=== PATIENT | male | born 1940 | race Caucasian/White ===

== ENCOUNTER 2018-09-09 02:42 | Inpatient (IN) ==
[2018-09-09 03:21] LABS: Basophils # 0.1 K/mcL (0.0-0.2); Basophils % 0.7 %; Eosinophils # 0.2 K/mcL (0.0-0.6); Eosinophils % 1.2 %; Hematocrit 44.8 % (37.5-50.1); Hemoglobin 15.5 g/dL (12.9-16.9); Immature Granulocytes % 0.7 % (0-4); Lymphocytes # 1.7 K/mcL (0.6-4.6); Lymphocytes % 14.1 %; Mean Corpuscular HGB Conc 34.6 g/dL (31.6-35.5); Mean Corpuscular Hemoglobin 32.2 pg (28.0-33.3); Mean Corpuscular Volume 92.9 fL (83.0-100.0); Mean Platelet Volume 10.5 fL (9.4-12.4); Monocytes # 0.8 K/mcL (0.0-1.3); Monocytes % 6.8 %; Neutrophils # 9.4 K/mcL (1.6-8.9); Platelet Count 189 K/mcL (140-400); Red Blood Count 4.82 M/mcL (4.19-5.50); Red Cell Distribution Width 13.8 % (11.5-14.5); Segmented Neutrophils % 76.5 %
[2018-09-09] MEDS ORDERED: *HR* FentaNYL (PF) 100 MCG/2 ML VIAL IVP ONE ×2 (03:26→04:48)
[2018-09-09] MEDS ORDERED: Ondansetron 4 MG/2 ML VIAL IVP ONE ×2 (03:26→05:25)
--- NOTE | 2018-09-09 03:31 | Emergency Department Note ---
Disposition Clinical Impression: Small bowel obstruction, Hyperglycemia Abdominal pain Qualifiers: Abdominal location: epigastric Qualified Code(s): R10.13 - Epigastric pain Leukocytosis Qualifiers: Leukocytosis type: unspecified Qualified Code(s): D72.829 - Elevated white blood cell count, unspecified Disposition: Admitted As Inpatient Condition: Good [facility] Care Provider[facility] - Forms: ED Satisfaction Letter, Work/School Release Time of Disposition: 05:06 General Adult HPI - General Chief complaint: ED Abdominal Pain Stated complaint: abdominal pain Time Seen by Provider: 09/09/18 03:20 Source: patient Mode of arrival: ambulatory Limitations: no limitations Nursing Notes Reviewed: Yes Vital Signs Reviewed: Yes - History of Present Illness HPI Narrative: Patient is a 78-year-old male that presents emergency department with abdominal pain. Patient states that his abdominal pain began around 2100 yesterday evening. Patient states that the pain is located in the epigastric region and will radiate around to his sides. Patient states that he has had a previous history of pancreatitis and a small bowel obstruction. Patient states that the pain does feel somewhat similar to his small bowel obstruction however it is not as severe as when he had a small bowel obstruction. Patient states that the pain will wax and wane but never completely goes away. Patient has not vomited or had any diarrhea. Patient states that this does not really feel like his previous episode of pancreatitis. Patient states that his pancreatitis was secondary to a gallbladder issue. Patient states that his last bowel movement was at 1800 yesterday evening. States that since then he has not really been passing any gas. Pain Scale: 3 - Related Data Home Medications Medication Instructions Recorded Confirmed Acetaminophen [Tylenol] 500 mg PO BID PRN 10/30/17 10/30/17 Albuterol Sulfate [Albuterol 2 puff IH Q4H PRN 10/30/17 10/30/17 Inhaler] Aspirin Enteric Coated [Aspirin EC] 325 mg PO DAILY 10/30/17 10/30/17 Budesonide/Formoterol 160/4.5 1 puff IH Q12H 10/30/17 10/30/17 [Symbicort 160/4.5] Hydrochlorothiazide [Microzide] 12.5 mg PO DAILY 10/30/17 10/30/17 Ibuprofen [Motrin] 200 mg PO DAILY PRN 10/30/17 10/30/17 Metformin HCl [Glucophage] 1,000 mg PO DAILY 10/30/17 10/30/17 Metoprolol [Lopressor] 12.5 mg PO BID 10/30/17 10/30/17 Pravastatin Sodium [Pravachol] 60 mg PO HS 10/30/17 10/30/17 Previous Rx's Medication Instructions Recorded OxyCODONE/APAP 5/325 [Percocet 1 each PO Q4HR PRN #20 tablet 11/05/17 5/325 MG] Allergies Allergy/AdvReac Type Severity Reaction Status Date / Time No Known Allergies Allergy Verified 10/30/17 10:15 All systems ED: reviewed and negative except as stated. Cardiovascular: Denies: chest pain Respiratory: Denies: dyspnea Gastrointestinal: Reports: abdominal pain. Denies: nausea, vomiting, diarrhea Past Medical History - Past Medical History Medical history: Reports: asthma, cancer, diabetes, hyperlipidemia, hypertension Surgical history: Reports: other Psychiatric history: Reports: no psych history - Social History Smoking Status: Former smoker Smokeless Tobacco Status: No Alcohol use: Reports: none Drug use: Reports: none Physical Exam - General Limitations: no limitations General appearance: alert, in no apparent distress - Head Head exam: atraumatic, normocephalic - Eye Eye exam: Present: normal appearance, EOMI - Neck Neck exam: Present: normal inspection, full ROM, trachea midline - Respiratory Respiratory exam: Present: normal lung sounds bilaterally. Absent: respiratory distress, wheezes - Cardiovascular Cardiovascular exam: Present: regular rate, normal rhythm, normal heart sounds, +S1, +S2 - Abdominal Exam Abdominal exam: Present: soft, tenderness, normal bowel sounds Abdominal tenderness: Present: epigastrium, moderate - Neurological Exam Neurological exam: Present: alert, oriented X3 - Psychiatric Psychiatric exam: Present: normal affect, normal mood - Skin Skin exam: Present: warm, dry, intact Course Vital Signs Temperature 98.3 F 09/09/18 02:44 Pulse Rate 73 09/09/18 02:44 Respiratory Rate 18 09/09/18 02:44 Blood Pressure 169/81 09/09/18 02:44 O2 Sat by Pulse Oximetry 97 09/09/18 02:44 Temperature 98.3 F 09/09/18 02:44 Pulse Rate 68 09/09/18 04:46 Respiratory Rate 18 09/09/18 04:46 Blood Pressure 161/74 09/09/18 04:46 O2 Sat by Pulse Oximetry 100 09/09/18 04:46 Oxygen Delivery Oxygen Delivery Room Air Medical Decision Making - MDM Narrative Medical decision making narrative: Due to the patient presenting to the emergency department with abdominal pain with a history of pancreatitis and small bowel obstruction we will obtain basic laboratory testing as well as a CT scan of the abdomen and pelvis to rule out possible entry abdominal pathology. The CT of the abdomen and pelvis did show evidence of a small bowel obstruction. Patient does also have a leukocytosis of 12.3.. Patient is hyperglycemic with a blood sugar of 243. Remainder of his laboratory testing is relatively unremarkable. Based on the patient having a small bowel obstruction and [facility]. I called and spoke with the on-call surgeon Dr. Snyder and he recommended that the patient be admitted to the medical service with a surgical consult. [facility] discussion with the [facility] the patient has been approved to stay here at [facility] for the remainder of his care at his small bowel obstruction. Patient will be admitted to the medical service. An NG tube was not placed at this time due to the patient not having any vomiting. I called spoke the admitting hospitalist Dr. Irene and he is except the patient to their service. Patient be admitted to the hospital at this time for further evaluation and management. - Medical Records Medical records reviewed: Yes I reviewed the patient's medical records. - Lab Data Lab results reviewed: Yes I reviewed the patient's lab results. Result diagrams: 09/09/18 03:08 09/09/18 03:08 Lab Results 09/09/18 09/09/18 09/09/18 Range/Units 03:08 03:08 03:08 WBC 12.3 H (4.3-11.1) K/mcL RBC 4.82 (4.19-5.50) M/mcL Hgb 15.5 (12.9-16.9) g/dL Hct 44.8 (37.5-50.1) % MCV 92.9 (83.0-100.0) fL MCH 32.2 (28.0-33.3) pg MCHC 34.6 (31.6-35.5) g/dL RDW 13.8 (11.5-14.5) % Plt Count 189 (140-400) K/mcL MPV 10.5 (9.4-12.4) fL Immature Gran % 0.7 (0-4) % Seg Neutrophils % 76.5 % Lymphocytes % 14.1 % Monocytes % 6.8 % Eosinophils % 1.2 % Basophils % 0.7 % Neutrophils # 9.4 H (1.6-8.9) K/mcL Lymphocytes # 1.7 (0.6-4.6) K/mcL Monocytes # 0.8 (0.0-1.3) K/mcL Eosinophils # 0.2 (0.0-0.6) K/mcL Basophils # 0.1 (0.0-0.2) K/mcL Sodium 137 (136-145) mEq/L Potassium 4.0 (3.5-5.1) mEq/L Chloride 101 (98-107) mEq/L Carbon Dioxide 28 (23-29) mEq/L BUN 21 (8-23) mg/dL Creatinine 1.02 (0.70-1.30) mg/dL Est GFR ( Amer) > 60 (> 60) Est GFR (Non-Af Amer) > 60 (> 60) BUN/Creatinine Ratio 21 (6-26) Glucose 243 H (70-105) mg/dL Calculated Osmolality 295 (280-300) Calcium 9.5 (8.6-10.3) mg/dL Total Bilirubin 0.5 (0.3-1.0) mg/dL Direct Bilirubin 0.1 (0.0-0.2) mg/dL Indirect Bilirubin 0.4 (0.0-1.2) mg/dL AST 25 (13-39) Units/L ALT 18 (7-52) Units/L Alkaline Phosphatase 61 (34-104) Units/L Troponin I < 0.03 (< 0.04) ng/mL Serum Total Protein 7.6 (6.4-8.9) g/dL Albumin 4.6 (3.5-5.7) g/dL Globulin 3.0 (2.4-3.5) g/dL Albumin/Globulin Ratio 1.5 (1.1-2.2) Lipase 32 (11-82) Units/L - Radiology Data Radiology results reviewed: Yes I reviewed the patient's radiology results. Abdomen/Pelvis CT 09/09/18 03:27 IMPRESSION: Features of a mechanical small bowel obstruction with zone of transition in the right hemiabdomen in the region of the bowel anastomosis. No free intraperitoneal air. D/ / Raheem Greene / Raheem Greene Interpreting Provider: Raheem Greene - EKG Data EKG #1 EKG attestation: Yes I reviewed and interpreted this EKG. EKG results narrative: EKG shows a sinus rhythm and rate of 69 bpm, NE interval of 209, QRS duration 99, QTC of 402. There is no evidence of STEMI on EKG.
[2018-09-09 03:38] LABS: Alanine Aminotransferase 18 Units/L (7-52); Albumin 4.6 g/dL (3.5-5.7); Albumin/Globulin Ratio 1.5 (1.1-2.2); Alkaline Phosphatase 61 Units/L (34-104); Aspartate Amino Transferase 25 Units/L (13-39); BUN/Creatinine Ratio 21 (6-26); Bilirubin,Direct 0.1 mg/dL (0.0-0.2); Bilirubin,Indirect 0.4 mg/dL (0.0-1.2); Bilirubin,Total 0.5 mg/dL (0.3-1.0); Blood Urea Nitrogen 21 mg/dL (8-23); Calcium 9.5 mg/dL (8.6-10.3); Carbon Dioxide 28 mEq/L (23-29); Chloride 101 mEq/L (98-107); Glucose 243 mg/dL (70-105); Osmolality,Calculated 295 (280-300); Sodium 137 mEq/L (136-145); Total Protein 7.6 g/dL (6.4-8.9); eGFR For Non-African Americans > 60 (> 60)
[2018-09-09 03:50] LABS: Lipase 32 Units/L (11-82); Troponin I < 0.03 ng/mL (< 0.04)
--- NOTE | 2018-09-09 04:55 | Emergency Department Note ---
Disposition Clinical Impression: Small bowel obstruction, Hyperglycemia Abdominal pain Qualifiers: Abdominal location: epigastric Qualified Code(s): R10.13 - Epigastric pain Leukocytosis Qualifiers: Leukocytosis type: unspecified Qualified Code(s): D72.829 - Elevated white blood cell count, unspecified Disposition: Admitted As Inpatient Condition: Good General Adult HPI - General Chief complaint: ED Abdominal Pain Stated complaint: abdominal pain Time Seen by Provider: 09/09/18 03:20 Source: patient Mode of arrival: ambulatory Limitations: no limitations Nursing Notes Reviewed: Yes Vital Signs Reviewed: Yes - History of Present Illness Pain Scale: 3 - Related Data Home Medications Medication Instructions Recorded Confirmed Acetaminophen [Tylenol] 500 mg PO BID PRN 10/30/17 10/30/17 Albuterol Sulfate [Albuterol 2 puff IH Q4H PRN 10/30/17 10/30/17 Inhaler] Aspirin Enteric Coated [Aspirin EC] 325 mg PO DAILY 10/30/17 10/30/17 Budesonide/Formoterol 160/4.5 1 puff IH Q12H 10/30/17 10/30/17 [Symbicort 160/4.5] Hydrochlorothiazide [Microzide] 12.5 mg PO DAILY 10/30/17 10/30/17 Ibuprofen [Motrin] 200 mg PO DAILY PRN 10/30/17 10/30/17 Metformin HCl [Glucophage] 1,000 mg PO DAILY 10/30/17 10/30/17 Metoprolol [Lopressor] 12.5 mg PO BID 10/30/17 10/30/17 Pravastatin Sodium [Pravachol] 60 mg PO HS 10/30/17 10/30/17 Previous Rx's Medication Instructions Recorded OxyCODONE/APAP 5/325 [Percocet 1 each PO Q4HR PRN #20 tablet 11/05/17 5/325 MG] Allergies Allergy/AdvReac Type Severity Reaction Status Date / Time No Known Allergies Allergy Verified 10/30/17 10:15 Cardiovascular: Denies: chest pain Respiratory: Denies: dyspnea Gastrointestinal: Reports: abdominal pain. Denies: nausea, vomiting, diarrhea Past Medical History - Past Medical History Medical history: Reports: asthma, cancer, diabetes, hyperlipidemia, hypertension Surgical history: Reports: other Psychiatric history: Reports: no psych history - Social History Smoking Status: Former smoker Smokeless Tobacco Status: No Alcohol use: Reports: none Drug use: Reports: none Physical Exam - General Limitations: no limitations General appearance: alert, in no apparent distress Course Vital Signs Temperature 98.3 F 09/09/18 02:44 Pulse Rate 73 09/09/18 02:44 Respiratory Rate 18 09/09/18 02:44 Blood Pressure 169/81 09/09/18 02:44 O2 Sat by Pulse Oximetry 97 09/09/18 02:44 Temperature 98.3 F 09/09/18 02:44 Pulse Rate 72 09/09/18 05:35 Respiratory Rate 17 09/09/18 05:35 Blood Pressure 170/75 09/09/18 05:35 O2 Sat by Pulse Oximetry 97 09/09/18 05:35 Oxygen Delivery Oxygen Delivery Room Air Medical Decision Making - Medical Records Medical records reviewed: Yes I reviewed the patient's medical records. - Lab Data Lab results reviewed: Yes I reviewed the patient's lab results. Result diagrams: 09/09/18 03:08 09/09/18 03:08 Lab Results 09/09/18 09/09/18 09/09/18 Range/Units 03:08 03:08 03:08 WBC 12.3 H (4.3-11.1) K/mcL RBC 4.82 (4.19-5.50) M/mcL Hgb 15.5 (12.9-16.9) g/dL Hct 44.8 (37.5-50.1) % MCV 92.9 (83.0-100.0) fL MCH 32.2 (28.0-33.3) pg MCHC 34.6 (31.6-35.5) g/dL RDW 13.8 (11.5-14.5) % Plt Count 189 (140-400) K/mcL MPV 10.5 (9.4-12.4) fL Immature Gran % 0.7 (0-4) % Seg Neutrophils % 76.5 % Lymphocytes % 14.1 % Monocytes % 6.8 % Eosinophils % 1.2 % Basophils % 0.7 % Neutrophils # 9.4 H (1.6-8.9) K/mcL Lymphocytes # 1.7 (0.6-4.6) K/mcL Monocytes # 0.8 (0.0-1.3) K/mcL Eosinophils # 0.2 (0.0-0.6) K/mcL Basophils # 0.1 (0.0-0.2) K/mcL Sodium 137 (136-145) mEq/L Potassium 4.0 (3.5-5.1) mEq/L Chloride 101 (98-107) mEq/L Carbon Dioxide 28 (23-29) mEq/L BUN 21 (8-23) mg/dL Creatinine 1.02 (0.70-1.30) mg/dL Est GFR ( Amer) > 60 (> 60) Est GFR (Non-Af Amer) > 60 (> 60) BUN/Creatinine Ratio 21 (6-26) Glucose 243 H (70-105) mg/dL Calculated Osmolality 295 (280-300) Calcium 9.5 (8.6-10.3) mg/dL Total Bilirubin 0.5 (0.3-1.0) mg/dL Direct Bilirubin 0.1 (0.0-0.2) mg/dL Indirect Bilirubin 0.4 (0.0-1.2) mg/dL AST 25 (13-39) Units/L ALT 18 (7-52) Units/L Alkaline Phosphatase 61 (34-104) Units/L Troponin I < 0.03 (< 0.04) ng/mL Serum Total Protein 7.6 (6.4-8.9) g/dL Albumin 4.6 (3.5-5.7) g/dL Globulin 3.0 (2.4-3.5) g/dL Albumin/Globulin Ratio 1.5 (1.1-2.2) Lipase 32 (11-82) Units/L - Radiology Data Radiology results reviewed: Yes I reviewed the patient's radiology results. Abdomen/Pelvis CT 09/09/18 03:27 IMPRESSION: Features of a mechanical small bowel obstruction with zone of transition in the right hemiabdomen in the region of the bowel anastomosis. No free intraperitoneal air. D/ / Raheem Greene / Raheem Greene Interpreting Provider: Raheem Greene - EKG Data EKG #1 EKG attestation: Yes I reviewed and interpreted this EKG. EKG results narrative: EKG shows a normal sinus rhythm with ventricular rate of 69. No acute ST segmen t elevation or depression. No arrhythmia or ectopy. Attestation Statement - Attestation Attestation: I, Bernardo Lindo MD, personally evaluated this patient and discussed their management with the resident physician. I reviewed the resident's note and agree with the documented findings, medical decision making, and plan of care. 78-year-old male presents to the emergency department with a complaint of mid abdominal pain which started about 9 PM this evening and has gotten progressively worse. There has been nausea and dry heaves but no productive vomiting. He had a normal bowel movement about 6 PM and then had a few loose bowel movements after that then the pain started and he has had no further bowel movements and has not been passing gas. Patient has a prior history of multiple abdominal surgeries. He had a bowel resection for colon cancer. He is also had a bowel obstruction which required surgery. On examination patient is a well-developed well-nourished elderly male in no acute distress. He is alert and oriented 3. There is no cyanosis or diaphoresis. Breath sounds are clear and equal bilaterally. Heart regular rate and rhythm. Abdomen is soft with decreased bowel sounds. Moderate mid abdominal tenderness with no guarding or rebound tenderness. Labs reviewed and unremarkable. CT consistent with small bowel obstruction. [facility] was consulted and approved admitting the patient here at [facility]. They reported that they would put notes in the record. The surgeon operator weapon locating radar, Dr. Snyder, was consulted and recommended medical admission with surgical consultation. The hospitalist, Dr. Seals, was consulted and accepted admission of the patient.
[2018-09-09 05:51] LABS: Bilirubin,Urine Negative (Negative); Blood,Urine Negative (Negative); Clarity,Urine Clear (Clear); Color,Urine Yellow (Yellow); Glucose,Urine (UA) 100 mg/dL (Normal); Ketones,Urine Negative (Negative); Leukocyte Esterase,Urine Negative (Negative); Nitrite,Urine Negative (Negative); Protein,Urine 100 mg/dL (Neg-Trace); Specific Gravity,Urine 1.014 (1.010-1.025); Urobilinogen,Urine Normal (Normal)
[2018-09-09 05:53] LABS: Bacteria,Urine None Seen per hpf (None-Few); Hyaline Casts,Urine None Seen per lpf (None-Few); RBC,Urine 0-3 per hpf (0-3); Squamous Epithelial Cell,Urine Few per lpf (None-Few); WBC,Urine 0-3 per hpf (0-3)
[2018-09-09] MEDS ORDERED: Dextrose Gel 15 GM/37.5 ML TUBE PO PRN ×2 (08:10)
[2018-09-09] MEDS ORDERED: *HR* Dextrose 50 % in Water (Syg) 50 ML SYRINGE IVP PRN (08:10)
[2018-09-09] MEDS ORDERED: D5% in Water 1,000 ML IVC PRN (08:10)
[2018-09-09] MEDS ORDERED: Naloxone 0.4 MG/ML INJ IVP PRN (08:12)
[2018-09-09] MEDS ORDERED: *HR* Promethazine 25 MG/ML VIAL IVP PRN (08:12)
[2018-09-09] MEDS ORDERED: *HR* Metoprolol 5 MG/5 ML VIAL IVP PRN (08:12)
[2018-09-09] MEDS ORDERED: Ondansetron 4 MG/2 ML VIAL IVP PRN (08:12)
[2018-09-09] MEDS ORDERED: Morphine Oral CONC 5 MG/0.25 ML ORAL.SYG PO PRN (08:15)
[2018-09-09] MEDS: Pantoprazole 40 MG VIAL IVP SCH (08:42)
[2018-09-09] MEDS: MORPHINE SUL Oral CONC 10 MG/0.5 ML ORAL.SYG PO PRN ×2 (08:42→14:42)
[2018-09-09] MEDS: 0.9 % Sodium Chloride 1,000 ML IVC SCH ×2 (08:43→18:17)
[2018-09-09] MEDS ORDERED: Chloraseptic Spray 177 ML BOTTLE MM STA (09:47)
[2018-09-09] MEDS ORDERED: Saliva Stimulant 100ml BOTTLE PO PRN (09:47)
[2018-09-09] MEDS ORDERED: Lidocaine Jelly 6ml 1 APPL/6 ML JEL.PF.APP MM STA (09:47)
[2018-09-09] MEDS: Budesonide/Formoterol 160/4.5 1 PUFF INH IH SCH ×2 (11:07→20:31)
[2018-09-09] MEDS: Insulin LISPRO 300 UNITS/3 ML VIAL SQ SCH ×2 (11:56→17:51)
[2018-09-09] MEDS ORDERED: *HR* Metoprolol 5 MG/5 ML VIAL IVP SCH (12:00)
[2018-09-09] MEDS ORDERED: Chloraseptic Spray 177 ML BOTTLE MM PRN (12:26)
--- NOTE | 2018-09-09 12:38 | General Surg History&Physical ---
<Mini Alvarado - Last Filed: 09/09/18 12:27> Date of Encounter: 09/09/18 Time of Encounter: 09:00 Assessment and Plan (1) Small bowel obstruction Current Visit: Yes Status: Acute The assessment and plan as outlined above was discussed with the patient and/or family members who expressed understanding and agreement. All questions were ans wered. CT of the abdomen and pelvis without contrast noted mechanical small bowel obstruction with transition zone in the right hemicolectomy abdomen likely in the region of the previous bowel anastomosis. No free air. NG tube was placed with small amount of cecal lent material returned. Of note the patient had just vomited approximately 400 ML's prior to insertion. Moderate amount of air returned. KUB notes proper placement. Plan continue supportive care and discomfort management bowel rest continue NG to low intermittent wall suction ambulate as tolerated EPCDs incentive spirometry. Patient is strongly encouraged to perform incentive spirometry 10 times every hour while awake. Patient does note that after his admission in October he was then admitted to the [facility] for pneumonia. repeat am labs serial abdominal exams (2) Nausea and vomiting Current Visit: Yes Status: Acute See above Qualifiers: Vomiting type: unspecified Vomiting Intractability: non-intractable Qualified Code(s): R11.2 - Nausea with vomiting, unspecified (3) HTN (hypertension) Current Visit: No Status: Chronic IV metoprolol prn for BP Qualifiers: Hypertension type: essential hypertension Qualified Code(s): I10 - Essential (primary) hypertension (4) History of colon cancer Current Visit: No Status: Resolved Per patient reported record review, last colonoscopy was 2 years ago at the [facility]. He has colonoscopies every 5 years. (5) HLD (hyperlipidemia) Current Visit: No Status: Chronic The assessment and plan as outlined above was discussed with the patient and/or family members who expressed understanding and agreement. All questions were answered. Qualifiers: Hyperlipidemia type: pure hypercholesterolemia Qualified Code(s): E78.00 - Pure hypercholesterolemia, unspecified; E78.0 - Pure hypercholesterolemia (6) Leukocytosis Current Visit: Yes Status: Acute The assessment and plan as outlined above was discussed with the patient and/or family members who expressed understanding and agreement. All questions were answered. Most likely reactionary. will continue to monitor. No indication for ATBX at this time Qualifiers: Leukocytosis type: unspecified Qualified Code(s): D72.829 - Elevated white blood cell count, unspecified History of Present Illness Chief complaint: abdominal pain HPI: Mr. Combs is a 78 year old male who presented on 09/09/2018 with complaints of abdominal pain. He has a notable history of colon cancer over 20 years ago. He reports having colon resection and chemotherapy. He was admitted to [facility] in October 2017 for a small bowel obstruction and underwent an exploratory laparotomy, lysis of adhesions, for aprox [address] Stewart. He reports his present symptoms feel similar. The ER attemped an NG but was unsuccessful, and the patient and refused reattempt. He states that yesterday he ate 2 burritos for dinner and at aprox 10pm began feeling abdominal pain and vomiting. He denies fever, chills, chest pain, shortness of breath, urinary signs or symptoms, black, bloody, or tarry stool. He reports his last bowel movement was yesterday, soft, formed. He continues to endorse feelings of nausea and vomiting, abdominal pain that is sharp in the mid abdomen. His further Past medical, surgical, and social histories have been reviewed per the EMR and updated where indicated. Past Med Surg Social Fam HX - Past Medical History Source: patient Medical history: asthma, cancer, diabetes, hyperlipidemia, hypertension, other (Hospital avquired PNA (October 2017)) Additional medical history: colon cancer Psychiatric history: no psych history - Past Surgical History Surgical History: other (Colon resection; exploratory laparotomy) Additional surgical history: colon surgery - Social History Smoking Status: Former smoker Smokeless Tobacco Status: No Alcohol use: none Drug use: none - Family History Father Family Member Ethnicity: Non- Living Status: Hx Family Endocrine Disorder: Yes Mother Family Member Ethnicity: Non- Living Status: Hx Family Cardiac Disorders: No Hx Family Cancer: Yes (Lung, Brain) Sister Family Member Ethnicity: Non- Living Status: Hx Family Cancer: Yes (Liver) Medications and Allergies RX: Acetaminophen [Tylenol] 500 mg PO BID PRN 10/30/17 [History] RX: Albuterol Sulfate [Albuterol Inhaler] 2 puff IH Q4H PRN 10/30/17 [History] RX: Aspirin Enteric Coated [Aspirin EC] 325 mg PO DAILY 10/30/17 [History] RX: Budesonide/Formoterol 160/4.5 [Symbicort 160/4.5] 1 puff IH Q12H 10/30/17 [History] RX: Hydrochlorothiazide [Microzide] 12.5 mg PO DAILY 10/30/17 [History] RX: Ibuprofen [Motrin] 200 mg PO DAILY PRN 10/30/17 [History] RX: Metformin HCl [Glucophage] 1,000 mg PO DAILY 10/30/17 [History] RX: Metoprolol [Lopressor] 12.5 mg PO BID 10/30/17 [History] RX: Pravastatin Sodium [Pravachol] 60 mg PO HS 10/30/17 [History] RX: OxyCODONE/APAP 5/325 [Percocet 5/325 MG] 1 each PO Q4HR PRN #20 tablet 11/05/17 [Rx] Allergy/AdvReac Type Severity Reaction Status Date / Time No Known Allergies Allergy Verified 10/30/17 10:15 Review of Systems All systems PM: reviewed and no additional remarkable complaints except as stated All systems PM: The remainder of the systems were reviewed and are negative - Constitutional no fatigue, no weight loss General Surgery Exam Initial Vital Signs Temp Pulse Resp BP Pulse Ox 98.3 F 73 18 169/81 97 09/09/18 02:44 09/09/18 02:44 09/09/18 02:44 09/09/18 02:44 09/09/18 02:44 VITAL SIGNS: Reviewed. See [facility] GENERAL: In no apparent distress. HEENT: Normocephalic, atraumatic, pupils are equal and reactive, extraocular motions intact, oropharynx is pink and moist, there is no neck adenopathy or JVD noted. CHEST/RESPIRATORY: The thorax is free from signs of trauma. Lung sounds: clear to auscultation, normal respiratory effort CARDIAC: Regular rate and rhythm. Normal S1 and S2, without murmurs, gallops, or rubs. VASCULAR: No Edema. 2+ peripheral pulses. ABDOMEN: soft, tender epigastric and umbilical area, absent bowel sounds; NG tube placed without difficulty, moderate amount of air in approximately 100 ML's fecal material returned. Just prior to insertion, patient did vomiting approximately 400 ML's; midline surgical scar healed. MUSCULOSKELETAL: Good range of motion of all major joints. Extremities without clubbing, cyanosis or edema. NEUROLOGIC EXAM: Alert and oriented x 3. Speech normal. Follows commands. PSYCHIATRIC: Mood normal. SKIN: No rash or lesions. Results - Labs 09/09/18 03:08 09/09/18 03:08 Abnormal lab results WBC 12.3 K/mcL (4.3-11.1) H 09/09/18 03:08 Neutrophils # 9.4 K/mcL (1.6-8.9) H 09/09/18 03:08 Glucose 243 mg/dL (70-105) H 09/09/18 03:08 Urine Protein 100 mg/dL (Neg-Trace) H 09/09/18 05:43 Urine Glucose (UA) 100 mg/dL (Normal) H 09/09/18 05:43 Diabetes panel 09/09/18 Range/Units 03:08 Sodium 137 (136-145) mEq/L Potassium 4.0 (3.5-5.1) mEq/L Chloride 101 (98-107) mEq/L Carbon Dioxide 28 (23-29) mEq/L BUN 21 (8-23) mg/dL Creatinine 1.02 (0.70-1.30) mg/dL Glucose 243 H (70-105) mg/dL Calcium 9.5 (8.6-10.3) mg/dL AST 25 (13-39) Units/L ALT 18 (7-52) Units/L Alkaline Phosphatase 61 (34-104) Units/L Albumin 4.6 (3.5-5.7) g/dL Calcium panel 09/09/18 Range/Units 03:08 Calcium 9.5 (8.6-10.3) mg/dL Albumin 4.6 (3.5-5.7) g/dL Pituitary panel 09/09/18 Range/Units 03:08 Sodium 137 (136-145) mEq/L Potassium 4.0 (3.5-5.1) mEq/L Chloride 101 (98-107) mEq/L Carbon Dioxide 28 (23-29) mEq/L BUN 21 (8-23) mg/dL Creatinine 1.02 (0.70-1.30) mg/dL Glucose 243 H (70-105) mg/dL Calcium 9.5 (8.6-10.3) mg/dL Adrenal panel 09/09/18 Range/Units 03:08 Sodium 137 (136-145) mEq/L Potassium 4.0 (3.5-5.1) mEq/L Chloride 101 (98-107) mEq/L Carbon Dioxide 28 (23-29) mEq/L BUN 21 (8-23) mg/dL Creatinine 1.02 (0.70-1.30) mg/dL Glucose 243 H (70-105) mg/dL Calcium 9.5 (8.6-10.3) mg/dL Total Bilirubin 0.5 (0.3-1.0) mg/dL AST 25 (13-39) Units/L ALT 18 (7-52) Units/L Alkaline Phosphatase 61 (34-104) Units/L Albumin 4.6 (3.5-5.7) g/dL All other labs normal. - Imaging CT scan - abdomen: report reviewed, image reviewed CT scan - pelvis: report reviewed, image reviewed <Madai Stewart - Last Filed: 09/09/18 14:48> Date of Encounter: 09/09/18 Time of Encounter: 14:25 Assessment and Plan (1) Small bowel obstruction Current Visit: Yes Status: Acute The assessment and plan as outlined above was discussed with the patient and/or family members who expressed understanding and agreement. All questions were answered. (2) Nausea and vomiting Current Visit: Yes Status: Acute The assessment and plan as outlined above was discussed with the patient and/or family members who expressed understanding and agreement. All questions were answered. prn antiemetics ngt to liws npo Qualifiers: Vomiting type: unspecified Vomiting Intractability: non-intractable Qualified Code(s): R11.2 - Nausea with vomiting, unspecified (3) HLD (hyperlipidemia) Current Visit: No Status: Chronic The assessment and plan as outlined above was discussed with the patient and/or family members who expressed understanding and agreement. All questions were answered. hold home meds currently Qualifiers: Hyperlipidemia type: pure hypercholesterolemia Qualified Code(s): E78.00 - Pure hypercholesterolemia, unspecified; E78.0 - Pure hypercholesterolemia (4) HTN (hypertension) Current Visit: No Status: Chronic The assessment and plan as outlined above was discussed with the patient and/or family members who expressed understanding and agreement. All questions were answered. scheduled lopressor, prn lopressor and hydralazine monitor Qualifiers: Hypertension type: essential hypertension Qualified Code(s): I10 - Essential (primary) hypertension (5) History of colon cancer Current Visit: No Status: Resolved The assessment and plan as outlined above was discussed with the patient and/or family members who expressed understanding and agreement. All questions were an swered. patient with previous right colectomy, CT shows possible site of narrowing at anastomosis (6) Leukocytosis Current Visit: Yes Status: Acute The assessment and plan as outlined above was discussed with the patient and/or family members who expressed understanding and agreement. All questions were answered. likely due to small bowel dilation no fevers trend wbc Qualifiers: Leukocytosis type: unspecified Qualified Code(s): D72.829 - Elevated white blood cell count, unspecified (7) Small bowel obstruction due to adhesions Current Visit: No Status: Acute The assessment and plan as outlined above was discussed with the patient and/or family members who expressed understanding and agreement. All questions were answered. small bowel obstruction due to adhesions or possible narrowing of anastomosis (s/p right colectomy( discussed with patient that he does not need an urgent surgery at this time would like to give his body the opportunity to resolve the obstruction on its own, if it does will plan sbft and colonoscopy (outpatient) npo ivf hydration prn pain control prn antiemetics ngt to liws scheduled home aerosols for asthma scheduled lopressor for htn, prn antihypertensives gi/dvt prophylasix (8) Asthma Current Visit: Yes Status: Chronic The assessment and plan as outlined above was discussed with the patient and/or family members who expressed understanding and agreement. All questions were answered. continue home aerosols pulmonary toilet/IS Qualifiers: Asthma severity: mild Asthma persistence: unspecified Asthma complication type: unspecified Qualified Code(s): J45.909 - Unspecified asthma, uncomplicated (9) DVT prophylaxis Current Visit: No Status: Acute The assessment and plan as outlined above was discussed with the patient and/or family members who expressed understanding and agreement. All questions were answered. heparin sq History of Present Illness HPI: Mr. Combs is a 78 year old male who presented with less than one day of abdominal pain and nausea and vomiting. Pain started last night around 9 pm and was generalized, sharp crampy pain. He had a bowel obstruction due to an adhesive band in Oct of this year and new the pain felt similar to last time. He has been having nausea and vomiting. He denies flatus overnight or today. Last bm was yesterday. No fevers, chills or night sweats. Patient states he had a right colectomy for colon cancer in the early . Usually the [facility] does his colonoscopies and last one was 4-5 years ago. No melena or hematochezia. Past Med Surg Social Fam HX - Past Medical History Medical history: asthma, cancer (right colon cancer), diabetes, hyperlipidemia, hypertension - Past Surgical History Surgical History: other (Colon resection/right colectomy; exploratory laparotomy/lysis of adhesions) Additional surgical history: right colectomy - Social History Occupational status: retired Review of Systems All systems PM: reviewed and no additional remarkable complaints except as stated All systems PM: The remainder of the systems were reviewed and are negative General Surgery Exam Initial Vital Signs Temp Pulse Resp BP Pulse Ox 98.3 F 73 18 169/81 97 09/09/18 02:44 09/09/18 02:44 09/09/18 02:44 09/09/18 02:44 09/09/18 02:44 - General physical appearance well developed, well nourished, no distress, moderate pain, obese - Eyes PERRL, normal ocular movement - ENT normal mucosa, normocephalic - Neck trachea midline - Respiratory normal expansion, clear to auscultation - Cardiovascular Cardiovascular exam: Present: RRR - Abdomen Abdomen general surgery: Present: bowel sounds present, soft, distended, tender. Absent: guarding, rebound Abdominal Tenderness: Present: diffusely - Integumentary Integumentary general surgery: Present: warm and dry, no abnormal pigmentation - Neurologic Present: CN 2-12 grossly intact - Musculoskeletal Present: normal posture - Psychiatric Psychiatric general surgery: Present: A&Ox3, appropriate Results - Labs 09/09/18 03:08 09/09/18 03:08 Abnormal lab results WBC 12.3 K/mcL (4.3-11.1) H 09/09/18 03:08 Neutrophils # 9.4 K/mcL (1.6-8.9) H 09/09/18 03:08 Glucose 243 mg/dL (70-105) H 09/09/18 03:08 Urine Protein 100 mg/dL (Neg-Trace) H 09/09/18 05:43 Urine Glucose (UA) 100 mg/dL (Normal) H 09/09/18 05:43 Diabetes panel 09/09/18 Range/Units 03:08 Sodium 137 (136-145) mEq/L Potassium 4.0 (3.5-5.1) mEq/L Chloride 101 (98-107) mEq/L Carbon Dioxide 28 (23-29) mEq/L BUN 21 (8-23) mg/dL Creatinine 1.02 (0.70-1.30) mg/dL Glucose 243 H (70-105) mg/dL Calcium 9.5 (8.6-10.3) mg/dL AST 25 (13-39) Units/L ALT 18 (7-52) Units/L Alkaline Phosphatase 61 (34-104) Units/L Albumin 4.6 (3.5-5.7) g/dL Calcium panel 09/09/18 Range/Units 03:08 Calcium 9.5 (8.6-10.3) mg/dL Albumin 4.6 (3.5-5.7) g/dL Pituitary panel 09/09/18 Range/Units 03:08 Sodium 137 (136-145) mEq/L Potassium 4.0 (3.5-5.1) mEq/L Chloride 101 (98-107) mEq/L Carbon Dioxide 28 (23-29) mEq/L BUN 21 (8-23) mg/dL Creatinine 1.02 (0.70-1.30) mg/dL Glucose 243 H (70-105) mg/dL Calcium 9.5 (8.6-10.3) mg/dL Adrenal panel 09/09/18 Range/Units 03:08 Sodium 137 (136-145) mEq/L Potassium 4.0 (3.5-5.1) mEq/L Chloride 101 (98-107) mEq/L Carbon Dioxide 28 (23-29) mEq/L BUN 21 (8-23) mg/dL Creatinine 1.02 (0.70-1.30) mg/dL Glucose 243 H (70-105) mg/dL Calcium 9.5 (8.6-10.3) mg/dL Total Bilirubin 0.5 (0.3-1.0) mg/dL AST 25 (13-39) Units/L ALT 18 (7-52) Units/L Alkaline Phosphatase 61 (34-104) Units/L Albumin 4.6 (3.5-5.7) g/dL All other labs normal. - Imaging CT scan - abdomen: report reviewed, image reviewed CT scan - pelvis: report reviewed, image reviewed - Attending Attestation I have personally performed a face to face evaluation on this patient. I have reviewed and agree with the care plan. History and Exam by me shows:
[2018-09-09] MEDS: *HR* Metoprolol 5 MG/5 ML VIAL IVP SCH (17:51)
[2018-09-09] MEDS: *HR* Heparin 5,000 UNIT/ML VIAL SQ SCH (17:52)
[2018-09-10] MEDS: Insulin LISPRO 300 UNITS/3 ML VIAL SQ SCH ×4 (00:25→17:35)
[2018-09-10] MEDS: *HR* Metoprolol 5 MG/5 ML VIAL IVP SCH ×4 (00:26→17:33)
[2018-09-10] MEDS: 0.9 % Sodium Chloride 1,000 ML IVC SCH ×2 (04:31→13:19)
[2018-09-10] MEDS: *HR* Heparin 5,000 UNIT/ML VIAL SQ SCH ×2 (06:11→17:32)
[2018-09-10 06:51] LABS: Basophils % 0.5 %; Eosinophils # 0.2 K/mcL (0.0-0.6); Eosinophils % 2.6 %; Hematocrit 39.9 % (37.5-50.1); Hemoglobin 13.7 g/dL (12.9-16.9); Immature Granulocytes % 0.3 % (0-4); Lymphocytes # 2.3 K/mcL (0.6-4.6); Lymphocytes % 29.9 %; Mean Corpuscular HGB Conc 34.3 g/dL (31.6-35.5); Mean Corpuscular Hemoglobin 32.6 pg (28.0-33.3); Mean Platelet Volume 10.6 fL (9.4-12.4); Monocytes # 1.1 K/mcL (0.0-1.3); Monocytes % 14.7 %; Neutrophils # 4.1 K/mcL (1.6-8.9); Platelet Count 164 K/mcL (140-400); Red Cell Distribution Width 14.3 % (11.5-14.5)
[2018-09-10 07:06] LABS: Alanine Aminotransferase 13 Units/L (7-52); Albumin 3.7 g/dL (3.5-5.7); Albumin/Globulin Ratio 1.4 (1.1-2.2); Alkaline Phosphatase 45 Units/L (34-104); Aspartate Amino Transferase 18 Units/L (13-39); BUN/Creatinine Ratio 22 (6-26); Bilirubin,Indirect 0.6 mg/dL (0.0-1.2); Bilirubin,Total 0.6 mg/dL (0.3-1.0); Blood Urea Nitrogen 24 mg/dL (8-23); Calcium 8.2 mg/dL (8.6-10.3); Carbon Dioxide 26 mEq/L (23-29); Chloride 106 mEq/L (98-107); Globulin 2.6 g/dL (2.4-3.5); Glucose 150 mg/dL (70-105); Osmolality,Calculated 297 (280-300); Phosphorous 2.4 mg/dL (2.7-4.5); Potassium 3.9 mEq/L (3.5-5.1); Sodium 140 mEq/L (136-145); Total Protein 6.3 g/dL (6.4-8.9); eGFR For Non-African Americans > 60 (> 60)
[2018-09-10] MEDS: Budesonide/Formoterol 160/4.5 1 PUFF INH IH SCH ×2 (07:23→20:28)
[2018-09-10] MEDS: Pantoprazole 40 MG VIAL IVP SCH (07:46)
--- NOTE | 2018-09-10 10:46 | General Surgery Progress Note ---
<ChristianoMini Samira - Last Filed: 09/10/18 10:43> Date of Encounter: 09/10/18 Time of Encounter: 10:44 - Assessment and Plan (1) Small bowel obstruction Status: Acute Small amount of output of thick yellow material malodorous (stool). Patient states he "threw up large amounts even though tube was in," yesterday. Suspect NG is having difficulty suctioning d/t thick material. NG appears pulled out approximately 5-7 cm from yesterday. We will check imaging. Abd pain improved, abd guarding is resolved. WBC normal. Plan: check KUB for bowel gas pattern and NG tube placement continue NPO continue PRN antiemetics continue chloraseptic and biotene spray GI and dvt prophylaxis up to chair tid amb tid (february clamp NG to ambu repeat am labs serial abd exams while continuing supportive care (2) Nausea and vomiting Status: Acute See above Qualifiers: Vomiting type: unspecified Vomiting Intractability: non-intractable Qualified Code(s): R11.2 - Nausea with vomiting, unspecified (3) HTN (hypertension) Status: Chronic Scheduled and PRN antihypertensives. Currently controlled Qualifiers: Hypertension type: essential hypertension Qualified Code(s): I10 - Essential (primary) hypertension (4) Leukocytosis Status: Acute WBC normal continue to follow Qualifiers: Leukocytosis type: unspecified Qualified Code(s): D72.829 - Elevated white blood cell count, unspecified (5) HLD (hyperlipidemia) Status: Chronic Hold home meds at this time Qualifiers: Hyperlipidemia type: pure hypercholesterolemia Qualified Code(s): E78.00 - Pure hypercholesterolemia, unspecified; E78.0 - Pure hypercholesterolemia Subjective Patient reports: feels better, pain is less, voiding w/o difficulty, flatus, bowel movement (soft brown), vomiting (reorts vomiting 2-3 times yesterday despite NG placement), afebrile, other (states abdominal pain is improved) Objective Vital Signs - Last 8 Hours Temp Pulse Resp BP Pulse Ox 09/10/18 03:40 98.2 F 65 14 136/67 98 Intake and Output 09/09/18 09/10/18 09/10/18 23:59 07:59 15:59 Intake Total 680 / 680 1350 / 1350 0 / 0 Output Total 525 / 525 125 / 125 250 / 250 Balance 155 / 155 1225 / 1225 -250 / -250 Intake: IV Fluids 680 / 680 1350 / 1350 0.9 % Sodium Chloride 1,000 ML 680 / 680 1350 / 1350 @ 100 mls/hr IVC .Q10H PUNEET Rx#: [id number] Oral 0 / 0 0 / 0 0 / 0 Output: Urine 350 / 350 0 / 0 250 / 250 Gastric Drainage 175 / 175 125 / 125 Right Nare 125 / 125 Other: Meal NPO DINNER npo Percent of Meal Consumed 0% # Bowel Movements 0 0 Weight 116.4 kg Blood Glucose* 176 131 Patient Weight 09/10/18 23:59 Weight 116.4 kg - General physical appearance no distress, no pain - ENT normal nares (NG secured loosely) - Neck Neck exam: trachea midline - Respiratory normal expansion, normal respiratory effort, clear to auscultation - Cardiovascular Cardiovascular exam: Present: RRR - Abdomen Abdomen: Present: bowel sounds present (tinkling), soft, non tender. Absent: guarding, rebound Hernia: none - Integumentary no rash, no growths - Neurologic normal sensation - Musculoskeletal normal posture - Psychiatric oriented to time, oriented to person, oriented to place, speech is normal, memory intact - Labs 09/10/18 05:34 09/10/18 05:34 Diabetes panel 09/10/18 Range/Units 05:34 Sodium 140 (136-145) mEq/L Potassium 3.9 (3.5-5.1) mEq/L Chloride 106 (98-107) mEq/L Carbon Dioxide 26 (23-29) mEq/L BUN 24 H (8-23) mg/dL Creatinine 1.09 (0.70-1.30) mg/dL Glucose 150 H (70-105) mg/dL Calcium 8.2 L (8.6-10.3) mg/dL AST 18 (13-39) Units/L ALT 13 (7-52) Units/L Alkaline Phosphatase 45 (34-104) Units/L Albumin 3.7 (3.5-5.7) g/dL Calcium panel 09/10/18 Range/Units 05:34 Calcium 8.2 L (8.6-10.3) mg/dL Phosphorus 2.4 L (2.7-4.5) mg/dL Albumin 3.7 (3.5-5.7) g/dL Pituitary panel 09/10/18 Range/Units 05:34 Sodium 140 (136-145) mEq/L Potassium 3.9 (3.5-5.1) mEq/L Chloride 106 (98-107) mEq/L Carbon Dioxide 26 (23-29) mEq/L BUN 24 H (8-23) mg/dL Creatinine 1.09 (0.70-1.30) mg/dL Glucose 150 H (70-105) mg/dL Calcium 8.2 L (8.6-10.3) mg/dL Adrenal panel 09/10/18 Range/Units 05:34 Sodium 140 (136-145) mEq/L Potassium 3.9 (3.5-5.1) mEq/L Chloride 106 (98-107) mEq/L Carbon Dioxide 26 (23-29) mEq/L BUN 24 H (8-23) mg/dL Creatinine 1.09 (0.70-1.30) mg/dL Glucose 150 H (70-105) mg/dL Calcium 8.2 L (8.6-10.3) mg/dL Total Bilirubin 0.6 (0.3-1.0) mg/dL AST 18 (13-39) Units/L ALT 13 (7-52) Units/L Alkaline Phosphatase 45 (34-104) Units/L Albumin 3.7 (3.5-5.7) g/dL Consult Discharge Plan - Plan Instructions: High Fiber Diet (DC), Bowel Obstruction (DC), Ileus (DC) Additional Instructions: EAt a high-fiber diet Drink at least 64 oz of fluids each day Report any fevers, chills, or increase in abdominal pain Referrals: Madai Stewart MD [Partnered Physician] - 09/26/18 9:55 am <Madai Stewart - Last Filed: 09/12/18 21:37> Date of Encounter: 09/10/18 - Assessment and Plan (1) Small bowel obstruction Status: Resolved patient does not have stool coming from NGT, continue ngt to liws no pain today, no further nausea or emesis around ngt scant flatus abdomen soft continue conservative management ivf hydration (2) Nausea and vomiting Status: Resolved Qualifiers: Vomiting type: unspecified Vomiting Intractability: non-intractable Qualified Code(s): R11.2 - Nausea with vomiting, unspecified (3) HLD (hyperlipidemia) Status: Chronic Qualifiers: Hyperlipidemia type: pure hypercholesterolemia Qualified Code(s): E78.00 - Pure hypercholesterolemia, unspecified; E78.0 - Pure hypercholesterolemia (4) HTN (hypertension) Status: Chronic Qualifiers: Hypertension type: essential hypertension Qualified Code(s): I10 - Essential (primary) hypertension (5) History of colon cancer Status: Resolved (6) Leukocytosis Status: Resolved Qualifiers: Leukocytosis type: unspecified Qualified Code(s): D72.829 - Elevated white blood cell count, unspecified (7) Small bowel obstruction due to adhesions Status: Acute (8) Asthma Status: Chronic Qualifiers: Asthma severity: mild Asthma persistence: unspecified Asthma complication type: unspecified Qualified Code(s): J45.909 - Unspecified asthma, uncomplicated (9) DVT prophylaxis Status: Acute Subjective Patient reports: feels better, pain is less, voiding w/o difficulty, flatus (scant), afebrile Narrative: no further nausea now Objective Intake and Output 09/12/18 09/12/18 09/12/18 07:59 15:59 23:59 Intake Total 640 / 640 120 / 120 Output Total 0 / 0 Balance 640 / 640 120 / 120 Intake: Oral 640 / 640 120 / 120 Output: Urine 0 / 0 Other: Meal Breakfast Percent of Meal Consumed 95% # Voids 1 Weight 98.2 kg Blood Glucose* 124 Patient Weight 09/12/18 23:59 Weight 98.2 kg - General physical appearance well developed, well nourished, no distress, no pain - Eyes PERRL, normal ocular movement - ENT normal mucosa, normocephalic - Respiratory normal expansion, normal respiratory effort - Abdomen Abdomen: Present: bowel sounds present, soft, non tender - Integumentary no growths - Musculoskeletal normal posture - Psychiatric oriented to time, oriented to person, oriented to place, speech is normal, memory intact - Labs 09/10/18 05:34 09/10/18 05:34 - Attending Attestation I have personally performed a face to face evaluation on this patient. I have reviewed and agree with the care plan. History and Exam by me shows: patient does NOT have stool coming from ngt
[2018-09-11] MEDS: 0.9 % Sodium Chloride 1,000 ML IVC SCH ×2 (00:02→09:45)
[2018-09-11] MEDS: *HR* Metoprolol 5 MG/5 ML VIAL IVP SCH ×3 (00:03→12:54)
[2018-09-11] MEDS: Insulin LISPRO 300 UNITS/3 ML VIAL SQ SCH ×4 (00:11→17:52)
[2018-09-11] MEDS: *HR* Heparin 5,000 UNIT/ML VIAL SQ SCH ×2 (06:35→18:21)
[2018-09-11] MEDS: Pantoprazole 40 MG VIAL IVP SCH (09:46)
--- NOTE | 2018-09-11 10:25 | General Surgery Progress Note ---
Addendum entered and electronically signed by Mini Alvarado CNP 09/11/18 13:53: SBFT unremarkable. Pt with multiple BMs. Will add FLD. RNs unable to obtain IV access. OK to hold off at this time. Anticipate dc in the next 24 hours Original Note: Date of Encounter: 09/11/18 Time of Encounter: 10:22 - Assessment and Plan (1) Small bowel obstruction Current Visit: Yes Status: Acute Noted increase in NG output; however it is now bilious rather than fecalant. He denies abd pain. Reports intermittent flatus. Denies BM. Plan: SBFT to r/o SBO ; further recommendations pending continue NPO continue PRN antiemetics continue chloraseptic and biotene spray GI and dvt prophylaxis up to chair tid amb tid (may clamp NG to ambu repeat am labs serial abd exams while continuing supportive care (2) Nausea and vomiting Current Visit: Yes Status: Acute See above Qualifiers: Vomiting type: unspecified Vomiting Intractability: non-intractable Qualified Code(s): R11.2 - Nausea with vomiting, unspecified (3) HTN (hypertension) Current Visit: Yes Status: Chronic Scheduled and PRN antihypertensives. Currently controlled Qualifiers: Hypertension type: essential hypertension Qualified Code(s): I10 - Essential (primary) hypertension (4) Leukocytosis Current Visit: Yes Status: Resolved WBC normal continue to follow as indicated Qualifiers: Leukocytosis type: unspecified Qualified Code(s): D72.829 - Elevated white blood cell count, unspecified (5) HLD (hyperlipidemia) Current Visit: No Status: Chronic Hold home meds at this time Qualifiers: Hyperlipidemia type: pure hypercholesterolemia Qualified Code(s): E78.00 - Pure hypercholesterolemia, unspecified; E78.0 - Pure hypercholesterolemia (6) Musculoskeletal pain Current Visit: Yes Status: Acute Ofirmev x1 dose Subjective Patient reports: feels better, pain is less, voiding w/o difficulty, flatus, no bowel movement, afebrile Narrative: He reports back and hip pain and feels as though it is related to inactivity. Objective Vital Signs - Last 8 Hours Temp Pulse Resp BP Pulse Ox 09/11/18 04:08 98.5 F 64 16 157/62 96 Intake and Output 09/10/18 09/11/18 09/11/18 23:59 07:59 15:59 Intake Total 0 / 0 1000 / 1000 1000 / 1000 Output Total 200 / 200 1125 / 1125 Balance -200 / -200 -125 / -125 1000 / 1000 Intake: IV Fluids 1000 / 1000 1000 / 1000 0.9 % Sodium Chloride 1,000 ML 1000 / 1000 1000 / 1000 @ 100 mls/hr IVC .Q10H PUNEET Rx#: [id number] Oral 0 / 0 0 / 0 Output: Urine 200 / 200 425 / 425 Gastric Drainage 700 / 700 Other: # Bowel Movements 0 Blood Glucose* 99 115 - General physical appearance no distress, no pain - Eyes normal ocular movement - ENT atraumatic, normocephalic - Respiratory normal expansion, normal respiratory effort, clear to auscultation - Cardiovascular Cardiovascular exam: Present: RRR - Abdomen Abdomen: Present: bowel sounds present (Faint), soft, tender. Absent: tympanic, distended, guarding Hernia: none - Integumentary no growths - Neurologic normal sensation - Musculoskeletal normal posture - Psychiatric oriented to time, oriented to person, oriented to place, speech is normal, memory intact - Labs 09/10/18 05:34 09/10/18 05:34 Consult Discharge Plan - Plan [facility]errals: [facility] [Primary Care Provider] -
[2018-09-11] MEDS ORDERED: Acetaminophen IV 1,000 MG/100 ML INFUS..BTL IVPB ONE (10:26)
[2018-09-11] MEDS: Budesonide/Formoterol 160/4.5 1 PUFF INH IH SCH ×2 (11:37→20:33)
--- NOTE | 2018-09-11 14:15 | Electrocardiograph Report ---
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
[2018-09-12] MEDS: Insulin LISPRO 300 UNITS/3 ML VIAL SQ SCH ×2 (01:33→05:42)
[2018-09-12] MEDS: *HR* Heparin 5,000 UNIT/ML VIAL SQ SCH (05:42)
[2018-09-12 06:28] VITALS: BP 153/80
--- NOTE | 2018-09-12 08:02 | Discharge Summary ---
Date of Encounter: 09/12/18 Time of Encounter: 08:07 - Discharge Diagnosis (1) Small bowel obstruction Priority: Primary Status: Resolved (2) Nausea and vomiting Priority: Secondary Status: Resolved Qualifiers: Vomiting type: unspecified Vomiting Intractability: non-intractable Qualified Code(s): R11.2 - Nausea with vomiting, unspecified (3) HTN (hypertension) Priority: Secondary Status: Chronic Qualifiers: Hypertension type: essential hypertension Qualified Code(s): I10 - Essential (primary) hypertension (4) Leukocytosis Priority: Secondary Status: Resolved Qualifiers: Leukocytosis type: unspecified Qualified Code(s): D72.829 - Elevated white blood cell count, unspecified (5) HLD (hyperlipidemia) Priority: Secondary Status: Chronic Qualifiers: Hyperlipidemia type: pure hypercholesterolemia Qualified Code(s): E78.00 - Pure hypercholesterolemia, unspecified; E78.0 - Pure hypercholesterolemia (6) Musculoskeletal pain Priority: Secondary Status: Resolved General Surgery Exam Initial Vital Signs Temp Pulse Resp BP Pulse Ox 98.3 F 73 18 169/81 97 09/09/18 02:44 09/09/18 02:44 09/09/18 02:44 09/09/18 02:44 09/09/18 02:44 Vital Signs Temp Pulse Resp BP Pulse Ox 09/12/18 06:27 97.6 F 62 15 153/80 96 09/12/18 04:27 98.2 F 61 15 138/69 97 09/11/18 20:33 18 97 09/11/18 19:44 97.8 F 68 15 144/61 97 09/11/18 10:44 97.9 F 64 15 168/70 96 09/11/18 08:30 96 Intake and Output 09/11/18 09/12/18 09/12/18 23:59 07:59 15:59 Intake Total 0 / 0 640 / 640 Output Total 0 / 0 0 / 0 Balance 0 / 0 640 / 640 Intake: Oral 0 / 0 640 / 640 Output: Urine 0 / 0 0 / 0 Other: # Voids 1 # Bowel Movements 1 Weight 98.2 kg Blood Glucose* 124 Patient Weight 09/12/18 23:59 Weight 98.2 kg VITAL SIGNS: Reviewed. See [facility] GENERAL: In no apparent distress. HEENT: Normocephalic, atraumatic, pupils are equal and reactive, extraocular motions intact, oropharynx is pink and moist, there is no neck adenopathy or JVD noted. CHEST/RESPIRATORY: The thorax is free from signs of trauma. Lung sounds: clear to auscultation, normal respiratory effort CARDIAC: Regular rate and rhythm. Normal S1 and S2, without murmurs, gallops, or rubs. VASCULAR: No Edema. 2+ peripheral pulses. ABDOMEN: soft, nontender, active bowel sounds, positive bowel movements. MUSCULOSKELETAL: Good range of motion of all major joints. Extremities without clubbing, cyanosis or edema. NEUROLOGIC EXAM: Alert and oriented x 3. Speech normal. Follows commands. PSYCHIATRIC: Mood normal. SKIN: No rash or lesions. - Hospital Course Hospital course: Mr. Combs is a 78 year old male who presented on 09/09/2018 with complaints of abdominal pain and vomiting. A CT of the abdomen and pelvis was performed which noted a small bowel obstruction. An NG tube was placed, and he was treated supportively. On 09/11/2018, he underwent a small bowel follow-through which was unremarkable. The NG was removed and he was started on a diet. He is tolerating soft foods without nausea or vomiting, continues to have bowel move ments, endorses flatus, and abdominal discomfort is resolved. He is a febrile and vital signs are stable. We will begin discharge planning to home with a follow-up in the office with Dr. Stewart in approximately 2 weeks - Time Spent with Patient Total time spent providing and/or coordinating discharge services: - Discharge Medications Home Medications: Acetaminophen [Tylenol] 500 mg PO BID PRN 10/30/17 [History] Albuterol Sulfate [Albuterol Inhaler] 2 puff IH Q4H PRN 10/30/17 [History] Aspirin Enteric Coated [Aspirin EC] 325 mg PO DAILY 10/30/17 [History] Budesonide/Formoterol 160/4.5 [Symbicort 160/4.5] 1 puff IH Q12H 10/30/17 [History] Hydrochlorothiazide [Microzide] 12.5 mg PO DAILY 10/30/17 [History] Ibuprofen [Motrin] 200 mg PO DAILY PRN 10/30/17 [History] Metformin HCl [Glucophage] 1,000 mg PO DAILY 10/30/17 [History] Metoprolol [Lopressor] 12.5 mg PO BID 10/30/17 [History] Pravastatin Sodium [Pravachol] 60 mg PO HS 10/30/17 [History] Allergies/Adverse Reactions: Allergy/AdvReac Type Severity Reaction Status Date / Time No Known Allergies Allergy Verified 10/30/17 10:15 Date of admission: 09/09/18 08:12 [facility] care physician: [facility] Consults: 09/09/18 05:06 Consult to Surgery [CONS] Stat Consulting Provider: [facility] Reason for Consult: small bowel obstruction Call Completed: Yes Discharging clinician: Mini Alvarado Anticipated date of discharge: 09/12/18 Labs on day of discharge: Labs from last 24 hours 09/11/18 12:59 POC Glucose 134 H - Impressions ITS Impressions Abdomen/Pelvis CT 09/09/18 03:27 IMPRESSION: Features of a mechanical small bowel obstruction with zone of transition in the right hemiabdomen likely in the region of the bowel anastomosis. No free intraperitoneal air. D/ / 09/09/2018 07:17:56 Raheem Greene / [facility] Interpreting Provider: Raheem Greene X-Ray 09/09/18 10:42 IMPRESSION: Nasogastric tube with tip and proximal side-port within the fundus. Partial small bowel obstruction. D/ / 09/09/2018 11:07:02 Homer Urbano MD / [facility] Interpreting Provider: Homer Urbano MD X-Ray 09/10/18 10:42 IMPRESSION: 1. Nasogastric tube appears in appropriate position. 2. Prominent loop of small bowel in the left hemiabdomen measuring up to 4.2 cm. Overall, small bowel appears improved since the prior radiograph. D/ / 09/10/2018 11:26:20 Beba Holley MD / [facility] Interpreting Provider: Beba Holley MD Small Bowel X-Ray 09/11/18 10:18 IMPRESSION: Normal small bowel transit time. No evidence of obstruction. D/ / Guevara Sainz MD / Guevara Sainz MD Interpreting Provider: Guevara Sainz MD - Patient Status Disposition: Home, Self-Care Condition: Good Functional capacity at discharge: independent ambulation Overall status at discharge: patient is back to baseline - Discharge Instructions Instructions: Bowel Obstruction (DC), Ileus (DC), High Fiber Diet (DC) Follow [facility] With: [facility] Care Provider[facility] - Madai Stewart MD [Partnered Physician] - 09/26/18 9:55 am Additional Instructions: EAt a high-fiber diet Drink at least 64 oz of fluids each day Report any fevers, chills, or increase in abdominal pain - Diet and Activity Activity: increase activity as tolerated Diet: other (high-fiber)
[2018-09-12] MEDS: Budesonide/Formoterol 160/4.5 1 PUFF INH IH SCH (08:12)
[2018-09-12] MEDS ORDERED: hydroCHLOROthiazide 25 MG TABLET PO SCH (09:00)
[2018-09-12] MEDS ORDERED: Aspirin Enteric Coated 325 MG Tablet PO SCH (09:00)
[2018-09-12] MEDS ORDERED: *HR* Metformin 500 MG TABLET PO SCH (09:00)
--- NOTE | 2018-09-12 21:30 | General Surgery Progress Note ---
Date of Encounter: 09/12/18 Time of Encounter: 07:30 - Assessment and Plan (1) Small bowel obstruction Status: Resolved patients small bowel obstruction has resolved, no further abdominal pain is tolerating regular diet without distention, nausea or abdominal pain have discussed wiht patient that his sbft is negative and no obvious sign of stricture at ileocolic anastomosis recommend colonoscopy to further evaluate area, patient is [facility] and [facility] and states will discuss with them ok to dc home (2) Nausea and vomiting Status: Resolved Qualifiers: Vomiting type: unspecified Vomiting Intractability: non-intractable Qualified Code(s): R11.2 - Nausea with vomiting, unspecified (3) HLD (hyperlipidemia) Status: Chronic continue home meds Qualifiers: Hyperlipidemia type: pure hypercholesterolemia Qualified Code(s): E78.00 - Pure hypercholesterolemia, unspecified; E78.0 - Pure hypercholesterolemia (4) HTN (hypertension) Status: Chronic ok to restart home medication Qualifiers: Hypertension type: essential hypertension Qualified Code(s): I10 - Essential (primary) hypertension (5) History of colon cancer Status: Resolved (6) Leukocytosis Status: Resolved resolved Qualifiers: Leukocytosis type: unspecified Qualified Code(s): D72.829 - Elevated white blood cell count, unspecified (7) Small bowel obstruction due to adhesions Status: Acute has resolved, due to adhesions versus anastomotic (8) Asthma Status: Chronic continue home aerosols Qualifiers: Asthma severity: mild Asthma persistence: unspecified Asthma complication type: unspecified Qualified Code(s): J45.909 - Unspecified asthma, uncomplicated (9) DVT prophylaxis Status: Acute Subjective Patient reports: feels better, tolerating a regular diet, voiding w/o difficulty, flatus, bowel movement Objective Intake and Output 09/12/18 09/12/18 09/12/18 07:59 15:59 23:59 Intake Total 640 / 640 120 / 120 Output Total 0 / 0 Balance 640 / 640 120 / 120 Intake: Oral 640 / 640 120 / 120 Output: Urine 0 / 0 Other: Meal Breakfast Percent of Meal Consumed 95% # Voids 1 Weight 98.2 kg Blood Glucose* 124 Patient Weight 09/12/18 23:59 Weight 98.2 kg - General physical appearance well developed, no distress - Eyes normal ocular movement - ENT normal mucosa - Neck Neck exam: trachea midline - Respiratory normal expansion, clear to auscultation - Cardiovascular Cardiovascular exam: Present: RRR - Abdomen Abdomen: Present: soft, non tender. Absent: distended, guarding, rebound - Integumentary no abnormal pigmentation - Neurologic CN 2-12 grossly intact - Musculoskeletal normal gait, normal posture - Psychiatric oriented to time, oriented to person, oriented to place, speech is normal, memory intact - Labs 09/10/18 05:34 09/10/18 05:34 - Imaging Additional Studies: sbft report Consult Discharge Plan - Plan Instructions: High Fiber Diet (DC), Bowel Obstruction (DC), Ileus (DC) Additional Instructions: EAt a high-fiber diet Drink at least 64 oz of fluids each day Report any fevers, chills, or increase in abdominal pain Referrals: Madai Stewart MD [Partnered Physician] - 09/26/18 9:55 am
== END 2018-09-12 09:38 | disposition home or self-care (01) | DRG 390 ==
LOC: EMEROOARM 02:42 → 3ANU 02:42 → SUATTDRO 05:23 → 3ANU 06:24
PROVIDERS: ADMIT Internal Medicine; ATTEND Surgery